=== PATIENT | female | born 1990 | race Caucasian/White ===

== ENCOUNTER 2021-07-15 05:38 | Emergency (ER) | payer MEDICAID ==
[~2021-07-15] VITALS: Ht 180.3 cm; Wt 105.5 kg
[2021-07-15] MEDS ORDERED: EPINEPHrine 1:10,000 [1 MG/10 ML] SYRINGE IVP ONE (05:41)
[2021-07-15] MEDS ORDERED: IOHEXOL 350 MG/ML 150 ML VIAL ONE (06:09)
[2021-07-15] MEDS ORDERED: SODIUM CHLORIDE 0.9% 100 ML ONE (06:10)
[2021-07-15 06:21] LABS: GLUCOMETER DEV NAME(LOC) ERT.5; GLUCOSE,POINT OF CARE 199 MG/DL (70-110)
[2021-07-15 06:24] LABS: BASOPHILS % (AUTO) 0.7 % (0.0-2.0); EOSINOPHILS % (AUTO) 2.9 % (1.0-6.0); HEMATOCRIT 40.8 % (36-46); HEMOGLOBIN 13.6 g/dL (12.0-16.0); LYMPHOCYTES # (AUTO) 3.1 K/uL (1.0-4.8); LYMPHOCYTES % (AUTO) 24.1 % (22.0-44.0); MEAN CORPUSCULAR HEMOGLOBIN 28.3 pg (26.0-34.0); MEAN CORPUSCULAR HGB CONC 33.4 G/dL (31.0-37.0); MEAN CORPUSCULAR VOLUME 85 fL (80-100); MONOCYTES # (AUTO) 1.5 K/uL (0.1-1.0); MONOCYTES % (AUTO) 11.6 % (2.0-9.0); NEUTROPHILS # (AUTO) 7.8 K/uL (1.8-7.7); NEUTROPHILS % (AUTO) 60.7 % (40.0-70.0); PLATELET COUNT (AUTO) 282 K/uL (150-450); RED BLOOD CELL COUNT(AUTO) 4.81 MIL/uL (4.00-5.20); RED CELL DISTRIBUTION WIDTH 15.8 % (11.5-14.5)
[2021-07-15] MEDS ORDERED: PROPOFOL 1000 MG/ISO-OSM 100 ML IV PRN (06:30)
[2021-07-15 06:37] LABS: PROTHROMBIN TIME 10.8 SEC (9.4-11.6)
[2021-07-15 06:39] LABS: ANION GAP 12 mmol/L (8-16); CALCIUM, TOTAL 8.4 mg/dL (8.8-10.5); CARBON DIOXIDE 26 mmol/L (22-29); CHLORIDE 97 mmol/L (98-107); CREATININE 1.07 mg/dL (0.60-1.30); GLOMERULAR FILTR. RATE CALC > 60 mL/min (>60); GLUCOSE,RANDOM 227 mg/dL (70-110); SODIUM SERUM 135 mmol/L (136-145); UREA NITROGEN, BLOOD 15 mg/dL (7-18)
[2021-07-15 06:43] LABS: B-TYPE NATRIURETIC PEPTIDE 54 pg/mL (0-100)
[2021-07-15 06:57] LABS: ALANINE AMINOTRANSFERASE 144 U/L (12-78); ALBUMIN 3.5 g/dL (3.4-5.0); ALKALINE PHOSPHATASE 87 U/L (46-116); ASPARTATE AMINOTRANSFERASE 79 U/L (15-37); BILIRUBIN,TOTAL 0.7 mg/dL (0.1-1.0); CREATINE KINASE, TOTAL ONLY 43 U/L (26-192); HCG,QUANTITATIVE < 1 mIU/mL (0-6); PHOSPHORUS 5.5 mg/dL (2.5-4.9); TOTAL PROTEIN, SERUM 7.5 g/dL (6.4-8.2)
[2021-07-15] MEDS ORDERED: ESMOLOL HCL 2,500 MG/NACL 250 ML IV PRN (07:00)
[2021-07-15] MEDS ORDERED: FentaNYL CIT 1000MCG/0.9% NACL 100 ML IV PRN (07:00)
[2021-07-15] MEDS ORDERED: ESMOLOL HCL 10 MG/ML 10 ML VIAL IVP ONE (07:15)
[2021-07-15 07:16] LABS: ABG BASE EXCESS 1.3 mmol/L (-2.0-3.0); ABG CARBOXYHEMOGLOBIN 0.5 % (0.0-3.0); ABG HCO3 25.9 mmol/L (22.0-26.0); ABG METHEMOGLOBIN 0.4 % (0.0-1.5); ABG OXYGEN CONTENT 22.6 mL/dL (15.0-23.0); ABG OXYGEN SATURATION 99.8 % (95.0-98.0); ABG OXYHEMOGLOBIN 98.9 % (94.0-100.0); ABG PCO2 36 mmHg (35-45); ABG PH 7.464 (7.350-7.450); ABG TOTAL HEMOGLOBIN 15.7 G/dL (12.0-18.0); PO2, ARTERIAL BG 327.5 mmHg (80.0-100.0); SOURCE, BLOOD GAS ARTERIAL; TEMPERATURE, FAHRENHEIT, BG 96.6 FAHREN (96.0-98.6)
[2021-07-15 07:17] LABS: ABG A-A DIFF O2 352.5 mmHg (10-20.0); O2 DEVICE,BLOOD GAS VENTILATOR (ROOM AIR); PEEP,BG 5 cm H2O; SITE, BLOOD GAS LFT RADIAL; VT, ABG 450 ml
[2021-07-15] MEDS ORDERED: PROC5TAB54 PO (07:31)
[2021-07-15] MEDS ORDERED: LORA-1000 PO (07:31)
[2021-07-15] MEDS ORDERED: PROM25SU10 PR (07:31)
[2021-07-15] MEDS ORDERED: ASPI-1450 PO (07:31)
[2021-07-15] MEDS ORDERED: DICY-1 PO (07:31)
[2021-07-15] MEDS ORDERED: METO50 PO (07:31)
[2021-07-15] MEDS ORDERED: FAMO20 PO (07:31)
[2021-07-15] MEDS ORDERED: METO-296 PO (07:31)
[2021-07-15 07:41] LABS: APPEARANCE,URINE HAZY (CLEAR); BILIRUBIN,URINE NEGATIVE (NEGATIVE); GLUCOSE, URINE (UA) 70-100 mg/dL (NEGATIVE); KETONES,URINE NEGATIVE (NEGATIVE); NITRATE,URINE NEGATIVE (NEGATIVE); OCCULT BLOOD,URINE MODERATE (NEGATIVE); PH,URINE 6.5 (5.0-8.0); PROTEIN,URINE 300-600,SEE CONFIRM mg/dL (NEGATIVE); SPECIFIC GRAVITIY, URINE 1.024 (1.003-1.030); UROBILINOGEN,URINE <=1.0 mg/dL (<=1.0)
[2021-07-15] MEDS ORDERED: ONDANSETRON HCL 4 MG/2 ML VIAL IVP PRN (08:00)
[2021-07-15] MEDS ORDERED: POTASSIUM CHL 10 MEQ/WATER 50 ML IV PRN (08:00)
[2021-07-15] MEDS ORDERED: POTASSIUM CHLORIDE 20 MEQ ER TABLET PO PRN (08:00)
[2021-07-15] MEDS ORDERED: HEPARIN SODIUM,PORCINE 5,000 UNITS/ML VIAL SQ SCH (08:00)
[2021-07-15] MEDS ORDERED: INSULIN LISPRO 100 UNITS/ML SQ PRN (08:00)
[2021-07-15] MEDS ORDERED: DEXTROSE 50%-WATER 25 GM/50 ML SYRINGE IVP PRN (08:00)
[2021-07-15] MEDS ORDERED: ACETAMINOPHEN 325 MG TABLET PO PRN (08:00)
[2021-07-15 08:18] LABS: LEUKOCYTE ESTERASE ,URINE TRACE (NEGATIVE); SULFOSALICYLIC ACID,URINE 3+ (Negative); WBC,URINE 0-2 /HPF (0-5)
[2021-07-15 08:19] LABS: BACTERIA,URINE Moderate /HPF (None Seen); FINE GRANULAR CASTS,URINE 0-2 /LPF (None Seen); SQUAMOUS EPITHELIAL CELL,UR Moderate /LPF (None Seen)
[2021-07-15] MEDS: POTASSIUM CHL 10 MEQ/WATER 50 ML IV SCH ×2 (08:58→09:52)
[2021-07-15] MEDS ORDERED: PANTOPRAZOLE SODIUM 40 MG/VIAL IVP SCH (09:00)
[2021-07-15] MEDS ORDERED: DOCUSATE SODIUM 100 MG CAPSULE PO SCH (09:00)
[2021-07-15 09:59] VITALS: BP 125/61
[2021-07-15 11:06] LABS: COVID AG,FIA SOURCE NASAL SWAB
[2021-07-15] MEDS ORDERED: ACETAMINOPHEN 1000 MG/ISO-OSM 100 ML IV ONE (11:45)
[2021-07-15] MEDS ORDERED: PIPERACILLIN/TAZO 3.375 GM/D5W 50 ML IV ONE (11:45)
[2021-07-15] MEDS ORDERED: VANCOMYCIN HCL 1.25 GM in DEXTROSE 5%-WATER 250 ML IV ONE (11:45)
[2021-07-15] MEDS ORDERED: PROM-163 PO (11:46)
== END 2021-07-15 12:55 | disposition short-term general hospital (02) ==
LOC: EMS 05:40
DX: I46.9 Cardiac arrest, cause unspecified (principal); Q87.40 Marfan syndrome, unspecified; I71.00 Dissection of unspecified site of aorta; Z79.899 Other long term (current) drug therapy; Z20.822 Contact with and (suspected) exposure to COVID-19
CPT/HCPCS: 31500; 36415; 36600; 70450; 71045; 71260; 74177; 80053; 81001; 82550; 82805; 82962; 83735; 83880; 84100; 84484; 84702; 85025; 85610; 85730; 87040; 87086; 87426; 93005; 99291; 99292; C9113; J0131; J0171; J2704; J3480; J7050; Q9967; 72193; 74160; 81002; 94002; J3370; J3490; J7060